=== PATIENT | female | born 1990 | race African-American/Black ===

== ENCOUNTER 2020-07-30 00:26 | Emergency (ER) | payer SELFPAY ==
[2020-07-30 01:35] LABS: Hemoglobin 10.7 g/dL (12.0-16.0); Mean Corpuscular HGB CONC 32.9 g/dL (32.0-36.0); Mean Corpuscular Hemoglobin 23.5 pg (27.0-31.0); Mean Corpuscular Volume 71.4 fL (78.0-98.0); Mean Platelet Volume 10.8 fL (7.4-10.4); Platelet Count 208 thou/uL (130-400); RBC Distribution Width 16.4 % (11.5-14.5); Red Blood Cell (RBC) Count 4.56 mill/uL (4.20-5.40); White Blood Cell (WBC) Count 9.5 thou/uL (4.8-10.8)
[2020-07-30 01:48] LABS: ALT (SGPT) 15 U/L (8-55); AST (SGOT) 37 U/L (5-34); Albumin 4.1 g/dL (3.5-5.0); Alkaline Phosphatase 46 U/L (40-110); Anion Gap 15 mmol/L (10-20); BUN (Urea Nitrogen) 11 mg/dL (7.0-18.7); Bilirubin, Total 1.1 mg/dL (0.2-1.2); Calc. Creatinine Clearance 0 mL/min (70-130); Calcium 8.9 mg/dL (7.8-10.44); Carbon Dioxide 24 mmol/L (22-29); Chloride 108 mmol/L (98-107); Globulin 2.9 g/dL (2.4-3.5); Glucose 82 mg/dL (70-105); Potassium 3.8 mmol/L (3.5-5.1); Sodium 143 mmol/L (136-145)
[2020-07-30 02:00] LABS: Lymphocytes 24 % (21-51); MDiff Complete? YES; Microcytosis SLIGHT = 6-15 cells (100X) (0-5/hpf); Monocytes 7 % (0-10); Neutrophil 69 % (42-75); Target Cells SLIGHT = 2-5 cells (100X) (0-1/hpf)
[2020-07-30 02:07] LABS: BHCG - Serum Negative (NEGATIVE); Pregs Control Background? CLEAR/WHITE (CLR/WHITE); Pregs Control Bar Appear? YES (CONTROL BAR)
--- NOTE | 2020-07-30 09:22 | CT ---
PRELIMINARY REPORT/DIRECT RADIOLOGY/EMERGENCY AFTER HOUR SPROCEDURE: EXAM: CT Head Without Intravenous Contrast. CLINICAL HISTORY: PT REPORTS LEFT LOWER QUADRANT ABD PAIN X 1 MONTH. REPORTS WORSENING PAIN X 1 WEEK AND "UNBAREABLE" TODAY. REPORTS SAW PCP THIS WEEK DUE TO HAVING HEARTBURN AND HAD AN ECHO DONE BUT NO FINDINGS. ALSO REPORTS NAUSEA TECHNIQUE: Axial computed tomography images of the head/brain without intravenous contrast. COMPARISON: None provided. FINDINGS: BRAIN: No acute intraparenchymal hemorrhage. No mass lesion. No CT evidence for acute territorial inf arct. No midline shift or extra-axial collection. VENTRICLES: No hydrocephalus. ORBITS: The orbits are unremarkable. SINUSES AND MASTOIDS: The paranasal sinuses and mastoid air cells are clear. SOFT TISSUES: Occipital soft tissue hematoma/laceration with foci of gas. No radiopaque foreign body is seen. BONES: No acute skull fracture. IMPRESSION: 1. No acute intracranial abnormality. 2. Occipital soft tissue hematoma/laceration. No underlying calvarial fracture ELECTRONICALLY SIGNED BY: J Carlos Brumfield DO Jul 30, 2020 2:54:04 AM CIVIL SERVICE WORKER BRAIN CT WITHOUT CONTRAST: EMERGENCY AFTER HOURS EXAM: TIME: 2:40 AM. DATE: 07/30/2020. Occipital soft tissue swelling. No acute intracranial mass or bleed. This report is in agreement with the preliminary report. Transcribed Date/Time: 07/30/2020 9:29 AM
[2020-07-30] MEDS ORDERED: Iopamidol-370 76% 500 ML 1 ML ONE (11:38)
--- NOTE | 2020-07-30 11:57 | CT ---
PRELIMINARY REPORT/DIRECT RADIOLOGY/EMERGENCY AFTER HOURS PROCEDURE: EXAM: CT Abdomen and Pelvis with Intravenous Contrast CLINICAL HISTORY: PT REPORTS LEFT LOWER QUADRANT ABD PAIN X 1 MONTH. REPORTS WORSENING PAIN X 1 WEEK AND "UNBAREABLE" TODAY. REPORTS SAW PCP THIS WEEK DUE TO HAVING HEARTBURN AND HAD AN ECHO DONE BUT NO FINDINGS. ALSO REPORTS NAUSEA TECHNIQUE: Axial computed tomography images of the abdomen and pelvis with intravenous contrast. CONTRAST: With; ISOVUE 370,100mL COMPARISON: None provided. FINDINGS: LUNG BASES: No basilar airspace consolidation or pleural effusion. LIVER: Unremarkable. GALLBLADDER AND BILE DUCTS: Surgically absent. No ductal dilation. PANCREAS: Unremarkable. SPLEEN: Unremarkable. ADRENAL GLANDS: Unremarkable. KIDNEYS, URETERS, AND BLADDER: Unremarkable. No hydronephrosis or nephrolithiasis. No ureteral or varsha dder calculi. STOMACH AND BOWEL: No obstruction. No wall thickening. No CT evidence of colitis or acute diverticuli tis. Moderate colonic stool burden APPENDIX: No CT evidence for appendicitis. PERITONEUM: No free fluid. No free air. LYMPH NODES: No lymphadenopathy. REPRODUCTIVE: Unremarkable as visualized. VASCULATURE: No aortic aneurysm. BONES: No fracture or suspicious osseous abnormality. Transitional lumbosacral anatomy. ABDOMINAL WALL AND SOFT TISSUES: Unremarkable. IMPRESSION: No acute intra-abdominal or pelvic abnormality. ELECTRONICALLY SIGNED BY: J Carlos Brumfield DO Jul 30, 2020 2:56:55 AM CONTINUOUS PICKLING LINE PICKLER HELPER FINAL REPORT CT ABDOMEN AND PELVIS WITH CONTRAST: Liver, spleen, pancreas, and kidneys unremarkable. Small bowel loops show some nonspecific distentio n. Large volume stool throughout the colon suggests constipation. Uterus and adnexa unremarkable. Mild distention of the urinary bladder. I am in agreement with the preliminary report. POS: AGW
--- NOTE | 2020-07-30 11:59 | CT ---
PRELIMINARY REPORT/[facility] RADIOLOGY/EMERGENCY AFTER HOURS PROCEDURE: EXAM: CT Cervical Spine Without Intravenous Contrast. CLINICAL HISTORY: EMS CALLED FOR NECK BACK AND SHOULDER PAIN. LAC TO BACK OF HEAD. PT WAS IN ALTERCAT ION AND FELL BACKWARDS THROUGH WINDOW. TECHNIQUE: Axial computed tomography images of the cervical spine without intravenous contrast. Sagit hailey and coronal reformations performed. COMPARISON: None provided. FINDINGS: BONES: No acute fracture or focal osseous lesion. The C1 vertebral body is anteriorly subluxed approx imately 7 mm relative to the occiput. DISCS / DEGENERATIVE CHANGES: No significant disc or facet degeneration. No significant central canal or neural foraminal stenosis. SOFT TISSUES: Occipital soft tissue hematoma with foci of gas. No prevertebral soft tissue swelling. No apical pneumothorax. IMPRESSION: 1. C1 vertebral body is anteriorly subluxed approximately 7 mm relative to the occiput. Given histo ry of neck pain, this could represent ligamentous injury. Recommend MRI for further evaluation 2. No displaced fracture. 3. Occipital soft tissue hematoma with foci of gas. ELECTRONICALLY SIGNED BY: J Carlos Brumfield DO Jul 30, 2020 2:52:52 AM GENETIC COUNSELLOR FINAL REPORT CT CERVICAL SPINE: INDICATION: Trauma with pain and injury. FINDINGS: There is anterior subluxation of the C1 vertebra in relation to the occiput as noted on the prelimina ry report. No evidence of fracture identified. I am in agreement with the preliminary report. POS: JULIUS
== END 2020-07-30 03:22 | disposition left against medical advice (07) ==
LOC: ERS 00:26
DX: T74.11XA Adult physical abuse, confirmed, initial encounter (principal); M54.2 Cervicalgia; R10.9 Unspecified abdominal pain; I10 Essential (primary) hypertension; E11.9 Type 2 diabetes mellitus without complications; G43.909 Migraine, unspecified, not intractable, without status migrainosus
CPT/HCPCS: 70450; 72125; 74177; 80053; 84703; 85025; Q9967